=== PATIENT | female | born 1995 | race Caucasian/White ===

== ENCOUNTER → 2020-08-15 | Outpatient (CLI) | payer BC ==
--- NOTE | 2020-08-16 10:18 | Diagnostic Imaging Report ---
INDICATION: survey TECHNIQUE: Multiple real-time grayscale images were obtained over the gravid uterus. COMPARISON: None FINDINGS: There are no prior studies available for comparison. There is a single live fetus in cephalic presentation. heart motion was noted and a rate 140 BPM is recorded. There are no abnormalities identified. The growth perimeter are fairly uniform. The placenta is posterior and there is no previa. Amniotic fluid volume is within normal limits. The cervix was identified and measures 7.3 cm in length. Biometrical measurements are as follows: Biparietal cm, age weeks days. Head circumference cm, age weeks days. Abdominal circumference cm, age weeks days. Femur length cm, age weeks days. Sonographic estimate age: weeks days. Sonographic estimated date of delivery: . Estimated Weight: gm (+/- gm). LMP percentile: %. heart rate: beats per minute. number: of . IMPRESSION: 1. There is a single live fetus approximately 22 weeks 3 days +/- 2 weeks. EDC is 12/16/2020. 2. There are no abnormalities identified. 3. The growth perimeters are fairly uniform. Dictated by: Dictated on workstation # [id number]
== END ==
LOC: RAD 14:36
PROVIDERS: ATTEND Nurse Practitioner Women's Health
DX: Z34.92 Encounter for supervision of normal pregnancy, unspecified, second trimester (principal); Z3A.22 22 weeks gestation of pregnancy
CPT/HCPCS: 76805

== ENCOUNTER 2020-12-22 15:01 | Inpatient (IN) | payer BC ==
[~2020-12-22] VITALS: Ht 165.1 cm; Wt 96.4 kg
[2020-12-22] VITALS (41 sets, daily range): BP systolic 83–142; BP diastolic 44–81
[2020-12-22] MEDS ORDERED: D5 LR IV SOLUTION 1,000 ML IV ONE (15:31)
[2020-12-22] MEDS ORDERED: AMPICILLIN FOR IV USE 2,000 MG in WATER (STERILE) FOR INJECTION 14.8 ML IV SCH (15:34)
[2020-12-22] MEDS ORDERED: OXYTOCIN PRE-MIX DRIP 500 ML IV SCH (15:45)
[2020-12-22] MEDS ORDERED: MINERAL OIL CONCENTRATE 99.9% 15 ML UDC TOP PRN (15:45)
[2020-12-22 16:04] LABS: BASOPHILS % (AUTO) 0 % (0-10); EOSINOPHILS # (AUTO) 0.1 10^3/uL (0.0-0.3); EOSINOPHILS % (AUTO) 1 % (0-10); HEMATOCRIT 36 % (35-52); HEMOGLOBIN 12.1 g/dL (11.5-16.0); LYMPHOCYTES # (AUTO) 2.6 10^3/uL (1.0-4.0); LYMPHOCYTES % (AUTO) 22 % (12-44); MEAN CORPUSCULAR HEMOGLOBIN 30 pg (25-34); MEAN CORPUSCULAR HGB CONC 34 g/dL (32-36); MEAN CORPUSCULAR VOLUME 90 fL (80-99); MEAN PLATELET VOLUME 10.8 fL (9.0-12.2); MONOCYTES % (AUTO) 9 % (0-12); NEUTROPHILS # (AUTO) 7.7 10^3/uL (1.8-7.8); NEUTROPHILS % (AUTO) 67 % (42-75); PLATELET COUNT 216 10^3/uL (130-400); WHITE BLOOD COUNT 11.6 10^3/uL (4.3-11.0)
[2020-12-22] MEDS: D5 LR IV SOLUTION 1,000 ML IV SCH ×2 (16:28→23:20)
--- NOTE | 2020-12-22 17:17 | History & Physical-OB/GYN ---
GAMALIEL KELLY MED STUDENT 12/22/20 1717: OB - Chief Complaint & HPI Date/Time Date of Admission: Date of Admission: Dec 22, 2020 at 15:27 Date seen by a Provider: Dec 22, 2020 Chief Complaint/History OB-Reason for Admission/Chief: Rupture of Membranes Hx : 1 (0) Hx Para: 0 Hx Last Menstrual Period: 03/18/2020 Expected Date of Delivery: Dec 23, 2020 Gestational Age in Weeks: 39 Gestational Age in Days: 6 Admission Nurse Assessment Rev: Yes History of Labs Maternal blood type O positive GBS positive Allergies and Home Medications Allergies Coded Allergies: No Known Drug Allergies (Unverified , 12/22/20) Patient Home Medication List Home Medication List Reviewed: Yes OB - History Hx of Present Care: Yes Ultrasounds: Normal mid trimester US Obstetrical Complications: None Medical Complications: Other (History of COVID 19 infection ) Information Induced Hypertension: No Maternal Gestational Diabetes: No Obstetrical History Hx : 1 Hx Para: 0 Hx Termination: No Social History/Family History Alcohol Use: Denies Use Recreational Drug Use: No Smoking Cessation: Never smoker Immunizations Hepatitis A: Yes Hepatitis B: Yes Tetanus Booster (TDap): Less than 5yrs RPR/VDRL: Negative GBS Status: Positive HBsAG: Negative OB - Admission Exam Physical Exam HEENT: NCAT Heart: Rhythm Normal Abdomen: Gravid Cervical Dilatation: None Effacement: 75% Membranes: Ruptured Amniotic Fluid: Clear Heart Rate: 140's Accelerations: Accelerations Present Decelerations: Variable Decelerations Short Term Variability: Present Slot Operations Director Variability: Average (6-25) Contractions on Admission: 6-10 Minutes Apart Intensity: Moderate Labs Laboratory Tests Test 12/22/20 15:45 Range/Units White Blood Count 11.6 H 4.3-11.0 10^3/uL Red Blood Count 4.00 3.80-5.11 10^6/uL Hemoglobin 12.1 11.5-16.0 g/dL Hematocrit 36 35-52 % Mean Corpuscular Volume 90 80-99 fL Mean Corpuscular Hemoglobin 30 25-34 pg Mean Corpuscular Hemoglobin Concent 34 32-36 g/dL Red Cell Distribution Width 13.6 10.0-14.5 % Platelet Count 216 130-400 10^3/uL Mean Platelet Volume 10.8 9.0-12.2 fL Immature Granulocyte % (Auto) 2 % Neutrophils (%) (Auto) 67 42-75 % Lymphocytes (%) (Auto) 22 12-44 % Monocytes (%) (Auto) 9 0-12 % Eosinophils (%) (Auto) 1 0-10 % Basophils (%) (Auto) 0 0-10 % Neutrophils # (Auto) 7.7 1.8-7.8 10^3/uL Lymphocytes # (Auto) 2.6 1.0-4.0 10^3/uL Monocytes # (Auto) 1.0 0.0-1.0 10^3/uL Eosinophils # (Auto) 0.1 0.0-0.3 10^3/uL Basophils # (Auto) 0.0 0.0-0.1 10^3/uL Immature Granulocyte # (Auto) 0.2 H 0.0-0.1 10^3/uL OB - Assessment/Plan/Diagnosis Assessment Assessment: rupture of membranes Admission Dx Spontaneous rupture of membranes Admission Status: Inpatient Order (span 2 midnights) Reason for Inpatient Admission: Spontaneous rupture of membranes Plan Plan: Expectant Management TAWANDA GRAHAM DO 12/22/202020: OB - Chief Complaint & HPI Date/Time Date of Admission: 1729 Date seen by a Provider: Dec 22, 2020 Time Seen by a Provider: 20:00 Allergies and Home Medications Allergies Coded Allergies: No Known Drug Allergies (Unverified , 12/22/20) OB - History Hx of Present Medical Complications: Other (History of COVID 19 infection ) Patient Past Medical History n/a OB - Assessment/Plan/Diagnosis Assessment Admission Dx 25 yo G1P @ 39 weeks SROM Active labor GBS + Reason for Inpatient Admission: SROM at 39 weeks Plan Other Plan Pitocin augmentation and treatment of GBS Supervisory-Addendum Brief Verification & Attestation Participated in pt care: history, MDM, physical Personally performed: exam, history, MDM Care discussed with: Medical Student Procedures: n/a Verification and Attestation of Medical Student E/M Service A medical student performed and documented this service in my presence. I reviewed and verified all information documented by the medical student and made modifications to such information, when appropriate. I personally performed the physical exam and medical decision making. Tawanda Graham, Dec 22, 2020,20:22 GAMALIEL KELLY STUDENT Dec 22, 2020 17:17 TAWANDA GRAHAM DO Dec 22, 2020 20:21
[2020-12-22] MEDS ORDERED: HYDROmorphone 2 MG/ML VIAL (DILAUDID) ONE (19:15)
[2020-12-22] MEDS ORDERED: fentaNYL 2 mcg/ml BUPIVA 0.125 100 ML ONE (19:28)
[2020-12-22] MEDS ORDERED: LACTATED RINGERS 1,000 ML IV ONE (19:28)
[2020-12-22] MEDS: AMPICILLIN FOR IV USE 1,000 MG in WATER (STERILE) FOR INJECTION 7.4 ML IV SCH ×2 (19:30→23:48)
[2020-12-22] MEDS ORDERED: HYDROmorphone 2 MG/ML VIAL (DILAUDID) IV ONE (19:30)
[2020-12-22] MEDS: CATHETER FLUSH 10 ML SYR IV SCH (22:00)
[2020-12-22] MEDS ORDERED: NALOXONE 0.4 MG/ML 1 ML (NARCAN) VIAL IV PRN ×2 (22:30)
[2020-12-22] MEDS ORDERED: diphenhydrAMINE 50 MG/ML INJ (BENADRYL) IV PRN (22:30)
[2020-12-22] MEDS ORDERED: ONDANSETRON 4 MG/2 ML (SDV) Z0FRAN IV PRN (22:30)
[2020-12-22] MEDS ORDERED: METOCLOPRAMIDE INJ 10 MG/2 ML (REGLAN) IV PRN (22:30)
[2020-12-22] MEDS ORDERED: LACTATED RINGERS 1,000 ML IV SCH (22:30)
[2020-12-22] MEDS: EPIDURAL (fentaNYL 2 MCG/ML BUPIVA 0.125%)100 ML BAG EPI SCH (23:54)
[2020-12-23] VITALS (46 sets, daily range): BP systolic 103–158; BP diastolic 55–90
[2020-12-23] MEDS: EPIDURAL (fentaNYL 2 MCG/ML BUPIVA 0.125%)100 ML BAG EPI SCH (03:20)
[2020-12-23] MEDS: AMPICILLIN FOR IV USE 1,000 MG in WATER (STERILE) FOR INJECTION 7.4 ML IV SCH (03:50)
[2020-12-23] MEDS: CATHETER FLUSH 10 ML SYR IV SCH (06:05)
--- NOTE | 2020-12-23 07:21 | Anesthesia-Regional Post-Op ---
Regional Patient Condition Mental Status: Alert, Oriented x3 Circulation: Same as Pre-Op Headache: Absent Sensation: Full Recovery Motor Block: Absent Post Op Complications Complications None Follow Up Care/Instructions Patient Instructions None needed. Anesthesia/Patient Condition Patient is doing well, no complaints, stable vital signs, no apparent adverse anesthesia problems. No complications reported per nursing. MOLLY WIN CRNA Dec 23, 2020 07:20
[2020-12-23] MEDS ORDERED: LIDOCAINE/EPI 2% 1:200,00 (XYLOCAINE) 20 ML VIAL ONE (07:34)
[2020-12-23] MEDS: D5 LR IV SOLUTION 1,000 ML IV SCH (08:24)
[2020-12-23] MEDS: OXYTOCIN PRE-MIX DRIP 500 ML IV SCH ×2 (10:40→16:39)
[2020-12-23] MEDS ORDERED: WITCH HAZEL(TUCKS) 40 EA JAR TOP PRN (10:45)
[2020-12-23] MEDS ORDERED: BENZOCAINE/MENTHOL (DERMOPLAST) 56 ML CAN TP PRN (10:45)
[2020-12-23] MEDS ORDERED: MEASLES,MUMPS,RUBELLA 1 EA INJ SQ ONE (10:45)
[2020-12-23] MEDS ORDERED: DIBUCAINE 1% OINTMENT 30 GM TUBE TOP PRN (10:45)
[2020-12-23] MEDS ORDERED: HYDROcodone/APAP 5 MG/325 MG (LORTAB) TAB PO PRN (10:45)
[2020-12-23] MEDS ORDERED: TETANUS,DIPTH,PERTUSS P/F (BOOSTRIX) 0.5 ML VIAL IM ONE (10:45)
--- NOTE | 2020-12-23 10:51 | OB Labor & Delivery Record ---
L&D History Date of Service Date of Service: Dec 23, 2020 History Expected Date of Delivery: Dec 23, 2020 Gestational Age in Weeks: 39 Hx : 1 Hx Para: 0 Complications Events: Routine care Operative Indications (Cesarea: N/A-Vaginal Delivery Intrapartal Events: None, Ineffective Pushing L&D Stage1 Stage One Onset of Labor - Date: Dec 23, 2020 Monitors and Tracing Monitor Mode: External Heart Rate: 140 Monitor Accelerations: Uniform Monitor Decelerations: Early Station: 0 Assisted Variability: Average (6-10) Short Term Variability: Present Presentation: Vertex Vital Signs VS - Last 72 Hours, by Label 12/22/20 12/22/20 12/22/20 12/22/20 15:20 16:30 16:45 17:00 Temp 36.7 Pulse 102 93 89 93 Resp 18 18 18 B/P (MAP) 131/73 (92) 131/81 (98) 125/60 (81) Pulse Ox 98 O2 Delivery Room Air 12/22/20 12/22/20 12/22/20 12/22/20 17:15 17:30 18:00 18:15 Pulse 88 90 86 85 Resp 18 18 18 18 B/P (MAP) 128/73 (91) 128/79 (95) 114/68 (83) 131/77 (95) 12/22/20 12/22/20 12/22/20 12/22/20 18:30 18:45 19:00 19:15 Pulse 74 83 85 80 Resp 18 18 18 18 B/P (MAP) 123/69 (87) 121/66 (84) 122/71 (88) 134/81 (98) O2 Delivery Room Air 12/22/20 12/22/20 12/22/20 12/22/20 19:30 19:45 20:00 20:15 Temp 36.2 Pulse 70 76 76 74 Resp 20 18 18 18 B/P (MAP) 132/76 (94) 131/75 (93) 127/72 (90) 128/79 (95) O2 Delivery Room Air Room Air Room Air Room Air 12/22/20 12/22/20 12/22/20 12/22/20 20:30 20:45 20:50 20:53 Pulse 76 84 81 81 Resp 18 18 18 18 B/P (MAP) 142/73 (96) 122/77 (92) 123/78 (93) 126/58 (80) Pulse Ox 100 100 99 O2 Delivery Room Air Room Air Room Air Room Air 12/22/20 12/22/20 12/22/20 12/22/20 20:56 20:59 21:03 21:05 Pulse 76 89 90 90 Resp 18 18 18 18 B/P (MAP) 120/57 (78) 123/75 (91) 117/75 (89) 122/65 (84) Pulse Ox 99 97 97 100 O2 Delivery Room Air Room Air Room Air Room Air 12/22/20 12/22/20 12/22/20 12/22/20 21:08 21:10 21:13 21:16 Pulse 77 89 87 75 Resp 18 18 18 18 B/P (MAP) 126/66 (86) 120/59 (79) 115/56 (75) 115/61 (79) Pulse Ox 100 97 97 97 O2 Delivery Room Air Room Air Room Air Room Air 12/22/20 12/22/20 12/22/20 12/22/20 21:19 21:22 21:25 21:30 Pulse 83 75 94 78 Resp 18 18 18 18 B/P (MAP) 116/58 (77) 111/57 (75) 114/63 (80) 111/56 (74) O2 Delivery Room Air Room Air Room Air Room Air 12/22/20 12/22/20 12/22/20 12/22/20 21:50 22:05 22:20 22:35 Temp 36.1 Pulse 86 83 78 85 Resp 18 18 18 18 B/P (MAP) 100/59 (73) 105/55 (72) 108/60 (76) 107/58 (74) O2 Delivery Room Air Room Air Room Air Room Air 12/22/20 12/22/20 12/22/20 12/22/20 22:50 23:05 23:20 23:35 Pulse 85 71 73 71 Resp 18 18 18 18 B/P (MAP) 109/61 (77) 83/44 (57) 110/52 (71) 113/56 (75) O2 Delivery Room Air Room Air Room Air Room Air 12/22/20 12/23/20 12/23/20 12/23/20 23:50 00:05 00:20 00:35 Temp 36.2 Pulse 71 75 85 80 Resp 18 18 18 18 B/P (MAP) 116/56 (76) 132/69 (90) 139/73 (95) 141/74 (96) O2 Delivery Room Air Room Air Room Air Room Air 12/23/20 12/23/20 12/23/20 12/23/20 00:50 01:05 01:20 01:35 Pulse 72 74 80 76 Resp 18 18 18 18 B/P (MAP) 134/65 (88) 127/68 (87) 122/61 (81) 126/70 (88) O2 Delivery Room Air Room Air Room Air Room Air 12/23/20 12/23/20 12/23/20 12/23/20 01:50 02:05 02:20 02:35 Pulse 78 83 74 76 Resp 18 18 18 18 B/P (MAP) 124/73 (90) 125/73 (90) 130/69 (89) 131/68 (89) O2 Delivery Room Air Room Air Room Air Room Air 12/23/20 12/23/20 12/23/20 12/23/20 02:50 03:05 03:20 03:35 Pulse 73 95 86 72 Resp 18 18 18 18 B/P (MAP) 133/74 (93) 121/72 (88) 125/70 (88) 129/69 (89) O2 Delivery Room Air Room Air Room Air Room Air 12/23/20 12/23/20 12/23/20 12/23/20 03:50 04:05 04:20 04:35 Temp 36.9 Pulse 71 77 86 77 Resp 18 18 18 18 B/P (MAP) 135/73 (93) 134/74 (94) 124/65 (84) 126/60 (82) O2 Delivery Room Air Room Air Room Air Room Air 12/23/20 12/23/20 12/23/20 12/23/20 04:50 05:05 05:20 05:35 Pulse 74 74 83 77 Resp 18 18 18 18 B/P (MAP) 125/68 (87) 137/74 (95) 137/74 (95) 143/84 (103) O2 Delivery Room Air Room Air Room Air Room Air 12/23/20 12/23/20 12/23/20 12/23/20 05:50 06:05 06:20 06:35 Temp 36.5 Pulse 81 72 81 98 Resp 18 18 18 18 B/P (MAP) 158/90 (112) 136/70 (92) 140/80 (100) 137/84 (101) O2 Delivery Room Air Room Air Room Air Room Air 12/23/20 06:50 Pulse 80 Resp 18 B/P (MAP) 138/84 (102) O2 Delivery Room Air Rupture of Membranes Spontaneous Ruture of Membrane: Yes Amniotic Membrane Rupture Time: 1100 Vaginal Bleeding Description: Normal Show Induction/Anesthesia Epidural Cath Placement - Time: 2051 Progress/Notes Patient presented in active labor SROM, pitocin augmentation started and epidura l placed at patient request. She progressed to complete and 0 station L&D Stage2 Stage Two Stage II Date: Dec 23, 2020 Monitors and Tracing Monitor Mode: External Heart Rate: 140 Monitor Accelerations: Uniform Monitor Decelerations: Variable Assisted Variability: Average (6-10) Position: Right Occiput Anterior Presentation: Vertex Cord Descript/Complications Cord Vessel Description: 3 Vessels Complications Patient initially pushed for about an hour, presentation felt like OP/ROP. She was allowed to push on her side and labor down after finally put in hands and knees for about 30 min. After which we did have progression in scalp presentation to +2 at which point patient was exhausted from nearly 3 hours of pushing. A kiwi vacuum extractor was placed to help mother due to exhaustion. It was place on the flexion point of a now PIEDAD presentation, 40 mmHg applied to handpiece and with next maternal push infant head was extended over RML and delivered. Nuchal cord reduced x 1. Anterior posterior shoulders delivered and infant brought out onto maternal abdomen. Delivery Type Delivery Method: Spontaneous Vaginal Anterior Shoulder: Left Episiotomy/Perineal Laceration Laceraction(s)/Extensions: Yes Episiotomy Description: Right Mediolateral Degree (describe repair) RML repaired using 3-0 and 2-0 vicryl suture in usual fashion. Condition of Infant Delivery 1 minute Comment: 9 5 minute Comment: 9 Notes Live male infant weight 8lbs 6 oz Condition of Condition of Infant: Living Exam: No Observed Abnormalities Resuscitation Resuscitation: N/A - Spontaneous Resp L&D Stage3 Stage Three Stage III Date: Dec 23, 2020 Pictocin Pitocin Administration mu/min: 14 Pitocin ml/hr: 14 Pitocin Administration Comment: 30 mu wide open at delivery of placenta Placenta Delivery Placenta Delivery: Spontaneous Delivery Summary Summary Estimated blood loss (mL): 350 Attending at delivery: Tawanda Graham DO Condition of Delivery Examined: Cervix Examined, Uterus Explored Post Hemorrhage: No Condition of Mother stable Condition of (s) stable TAWANDA GRAHAM DO Dec 23, 2020 10:51
[2020-12-23] MEDS ORDERED: DIBU30OI TOP (10:57)
[2020-12-23] MEDS ORDERED: BENZ78AE5 TP (10:57)
[2020-12-23] MEDS ORDERED: IBUP-844 PO (10:57)
[2020-12-23] MEDS ORDERED: ACHD5005 PO (10:57)
[2020-12-23] MEDS ORDERED: DCS100C PO (10:57)
--- NOTE | 2020-12-23 10:58 | Discharge Inst-Women's Service ---
Discharge Inst-Women's Serv Depart Medication/Instructions New, Converted or Re-Newed RX: RX on Chart Final Diagnosis PPD 1 VAVD Problems Reviewed?: Yes Consults/Follow Up Additional Follow Up: Yes Orders/Referrals Dr. Graham in 6 weeks Activity Activity: Activity as Tolerated Driving Instructions: No Driving for 1 Week NO SMOKING: NO SMOKING Nothing Inside Vagina: No Douching, No [place], No Tampons Diet Discharge Diet: No Restrictions Symptoms to Report to : Bleeding Excessive, Pain Increased, Fever Over 101 Degrees F, Vaginal Bleeding Increase, Questions/Concerns For Any Problems or Questions: Contact Your Physician TAWANDA GRAHAM DO Dec 23, 2020 10:58
[2020-12-23] MEDS: IBUPROFEN 600 MG (MOTRIN) TAB PO SCH ×2 (13:43→20:07)
[2020-12-23] MEDS ORDERED: CATHETER FLUSH 10 ML SYR IV SCH (14:00)
[2020-12-23] MEDS: DOCUSATE SODIUM 100 MG (COLACE) CAP PO SCH (20:07)
[2020-12-24] VITALS: BP 96/58
[2020-12-24] MEDS: IBUPROFEN 600 MG (MOTRIN) TAB PO SCH ×3 (04:21→16:04)
[2020-12-24 04:28] VITALS: BP 116/67
[2020-12-24 06:25] LABS: BASOPHILS # (AUTO) 0.1 10^3/uL (0.0-0.1); BASOPHILS % (AUTO) 0 % (0-10); EOSINOPHILS # (AUTO) 0.1 10^3/uL (0.0-0.3); EOSINOPHILS % (AUTO) 1 % (0-10); HEMATOCRIT 31 % (35-52); HEMOGLOBIN 9.9 g/dL (11.5-16.0); LYMPHOCYTES # (AUTO) 3.3 10^3/uL (1.0-4.0); LYMPHOCYTES % (AUTO) 18 % (12-44); MEAN CORPUSCULAR HEMOGLOBIN 30 pg (25-34); MEAN CORPUSCULAR HGB CONC 32 g/dL (32-36); MEAN CORPUSCULAR VOLUME 93 fL (80-99); MEAN PLATELET VOLUME 11.2 fL (9.0-12.2); MONOCYTES # (AUTO) 1.4 10^3/uL (0.0-1.0); MONOCYTES % (AUTO) 7 % (0-12); NEUTROPHILS # (AUTO) 13.6 10^3/uL (1.8-7.8); NEUTROPHILS % (AUTO) 73 % (42-75); PLATELET COUNT 210 10^3/uL (130-400); WHITE BLOOD COUNT 18.6 10^3/uL (4.3-11.0)
[2020-12-24] MEDS ORDERED: PRENATAL VITAMIN 1 EA TAB PO SCH (07:00)
[2020-12-24 08:05] VITALS: BP 105/56
[2020-12-24] MEDS: DOCUSATE SODIUM 100 MG (COLACE) CAP PO SCH (08:11)
[2020-12-24] MEDS ORDERED: FERROUS SULF 325 MG (IRON) TAB PO SCH (09:00)
--- NOTE | 2020-12-24 09:43 | Postpartum Progress Note ---
Note Note Day # 1 s/p VAVD Subjective: Patient is without complaints. Ambulating, voiding. Tolerating a regular diet without nausea or vomiting. Normal lochia. Pain is well controlled with oral pain medications. breast feeding. [ Objective: 12/24/20 12/24/20 12/24/20 00:00 04:28 08:05 Temp 36.3 36.2 36.2 Pulse 76 97 80 Resp 18 18 16 B/P (MAP) 96/58 (71) 116/67 (83) 105/56 (72) Pulse Ox 97 99 99 O2 Delivery Room Air Room Air Room Air Laboratory Tests Test 12/24/20 05:54 Range/Units White Blood Count 18.6 H 4.3-11.0 10^3/uL Red Blood Count 3.32 L 3.80-5.11 10^6/uL Hemoglobin 9.9 L 11.5-16.0 g/dL Hematocrit 31 L 35-52 % Mean Corpuscular Volume 93 80-99 fL Mean Corpuscular Hemoglobin 30 25-34 pg Mean Corpuscular Hemoglobin Concent 32 32-36 g/dL Red Cell Distribution Width 13.9 10.0-14.5 % Platelet Count 210 130-400 10^3/uL Mean Platelet Volume 11.2 9.0-12.2 fL Immature Granulocyte % (Auto) 1 % Neutrophils (%) (Auto) 73 42-75 % Lymphocytes (%) (Auto) 18 12-44 % Monocytes (%) (Auto) 7 0-12 % Eosinophils (%) (Auto) 1 0-10 % Basophils (%) (Auto) 0 0-10 % Neutrophils # (Auto) 13.6 H 1.8-7.8 10^3/uL Lymphocytes # (Auto) 3.3 1.0-4.0 10^3/uL Monocytes # (Auto) 1.4 H 0.0-1.0 10^3/uL Eosinophils # (Auto) 0.1 0.0-0.3 10^3/uL Basophils # (Auto) 0.1 0.0-0.1 10^3/uL Immature Granulocyte # (Auto) 0.2 H 0.0-0.1 10^3/uL Physical Exam: General - Alert and oriented, no apparent distress Abdomen - Soft, appropriately tender to palpation, non-distended, fundus firm at umbilicus Extremities - no edema, negative Steven's bilaterally Assessment: 1. post- day # 1, status post VA vaginal delivery. Recovering well, hemodynamically stable Plan: Routine care. Encourage breast feeding. Encourage ambulation. Ferrous sulfate supplementation. Plan for discharge today or tomorrow Vitals - Labs Vital Signs - I&O Vital Signs Date Time Temp Pulse Resp B/P (MAP) Pulse Ox O2 Delivery O2 Flow Rate FiO2 12/24/20 08:05 36.2 80 16 105/56 (72) 99 Room Air 12/24/20 04:28 36.2 97 18 116/67 (83) 99 Room Air 12/24/20 00:00 36.3 76 18 96/58 (71) 97 Room Air 12/23/20 20:07 36.7 89 18 119/58 (78) 100 Room Air 12/23/20 16:14 36.7 85 20 121/66 (84) 99 Room Air 12/23/20 11:48 96 18 111/59 (76) Room Air 12/23/20 11:33 88 18 115/57 (76) Room Air 12/23/20 11:18 83 18 112/56 (74) Room Air 12/23/20 11:03 36.8 80 18 103/59 (74) Room Air 12/23/20 10:48 90 18 114/59 (77) Room Air 12/23/20 10:33 85 18 118/56 (76) Room Air 12/23/20 10:20 81 18 120/59 (79) Room Air 12/23/20 10:03 100 18 127/64 (85) Room Air Labs Laboratory Tests 12/24/20 05:54: White Blood Count 18.6H, Red Blood Count 3.32L, Hemoglobin 9.9L, Hematocrit 31L, Mean Corpuscular Volume 93, Mean Corpuscular Hemoglobin 30, Mean Corpuscular Hemoglobin Concent 32, Red Cell Distribution Width 13.9, Platelet Count 210, Mean Platelet Volume 11.2, Immature Granulocyte % (Auto) 1, Neutrophils (%) (Auto) 73, Lymphocytes (%) (Auto) 18, Monocytes (%) (Auto) 7, Eosinophils (%) (Auto) 1, Basophils (%) (Auto) 0, Neutrophils # (Auto) 13.6H, Lymphocytes # (Auto) 3.3, Monocytes # (Auto) 1.4H, Eosinophils # (Auto) 0.1, Basophils # (Auto) 0.1, Immature Granulocyte # (Auto) 0.2H MALATHI BRAUN DO Dec 24, 2020 09:43
[2020-12-24 14:40] VITALS: BP 102/56
[2020-12-24 18:34] VITALS: BP 102/56
== END 2020-12-24 19:00 | disposition home or self-care (01) | DRG 807 ==
LOC: LDRP 15:01 → WSo 15:01 → LDRP 15:27
PROVIDERS: ADMIT Obstetrics & Gynecology; ATTEND Obstetrics & Gynecology
PROC: 10D07Z6 Extraction of Products of Conception, Vacuum, Via Natural or Artificial Opening (ICD-10-PCS; principal; 2020-12-23)
PROC: 0W8NXZZ Division of Female Perineum, External Approach (ICD-10-PCS; 2020-12-23)
DX: O99.824 Streptococcus B carrier state complicating childbirth (principal); Z37.0 Single live birth; O75.81 Maternal exhaustion complicating labor and delivery; O69.81X0 Labor and delivery complicated by cord around neck, without compression, not applicable or unspecified; Z3A.39 39 weeks gestation of pregnancy
CPT/HCPCS: 36415; 85025; 86850; 86900; 86901; 99212